=== PATIENT | female | born 1990 | race Caucasian/White ===

== ENCOUNTER 2020-09-24 14:39 | Outpatient (CLI) | payer BC, OTHER, SELFPAY ==
--- NOTE | 2020-09-24 | ECHO_ITS ---
Patient Info Name: Shanel Thompson Age: 30 years : 1990 Gender: Female Ht: 66 in Wt: 210 lbs BSA: 2.14 m2 HR: 72 bpm BP: 131 / 76 mmHg Heart Rhythm: Sinus Rhythm Technical Quality: Good Exam Date: 09/24/2020 3:13 PM Exam Location: [facility] Pulmonary Patient Status: Outpatient Admit Date: 09/24/2020 Staff Ordering Physician: Lso, Bassam HERBERT Associate Data Scientist: Leslee Shaver RDCS Attending Provider: Los, Bassam HERBERT Exam Type: CA echo doppler color flow Study Info Indications - HTN Complete two-dimensional, color flow and Doppler transthoracic echocardiogram is performed. Summary 1. Complete two-dimensional, color flow and Doppler transthoracic echocardiogram is performed. 2. Left ventricular chamber dimension is mildly enlarged. 3. Left ventricular systolic function is normal, estimated at 60-65%. 4. There is mildly increased left ventricular wall thickness. 5. The left ventricular diastolic function is abnormal. 6. There is mild tricuspid valve regurgitation. 7. There is mild pulmonic regurgitation. 8. Suspected patent foramen ovale visualized by color flow imaging. Left Ventricle Left ventricular chamber dimension is mildly enlarged. Left ventricular systolic function is normal, estimated at 60-65%. There is mildly increased left ventricular wall thickness. The left ventricular diastolic function is abnormal. Right Ventricle Right ventricular chamber dimension is normal. Right ventricular systolic function is normal. Left Atria Left atrial chamber dimension is normal. Right Atria Right atrial chamber dimension is normal. Atrial Septum Suspected patent foramen ovale visualized by color flow imaging. Aortic Valve The aortic valve is trileaflet. There is no aortic valve sclerosis. There is no aortic valve stenosis. There is trace aortic valve regurgitation. Pulmonic Valve The pulmonic valve is normal. There is no pulmonic valve stenosis. There is mild pulmonic regurgitation. Mitral Valve The mitral valve has normal leaflets. There is no mitral valve stenosis. There is trace mitral valve regurgitation. Tricuspid Valve The tricuspid valve leaflets are normal. There is no significant tricuspid valve stenosis. There is mild tricuspid valve regurgitation. No pulmonary hypertension, estimated pulmonary arterial systolic pressure is 27 mmHg. Pericardium/Pleural The pericardium appears normal. There is no pericardial effusion. Inferior Vena Cava Normal inferior vena cava with >50% collapse upon inspiration consistent with normal right atrial pressure, 10 mmHg. Aorta The aortic root size at the sinus of Valsalva is normal. The prox ascending aorta size is normal. Left Ventricular Outflow Tract Name Value Normal LVOT 2D LVOT Diameter 2.1 cm LVOT Doppler LVOT Peak Gradient 4 mmHg LVOT Mean Gradient 3 mmHg LVOT VTI 22 cm LVOT VTI/AV VTI Ratio 0.8 LVOT Stroke Volume 79 ml LVOT CO
== END 2020-09-24 14:40 | disposition home or self-care (01) ==
LOC: ANHCARD 14:41
PROVIDERS: PCP Family Medicine; Visit Provider Nurse Practitioner Family
DX: R00.2 Palpitations (principal); I10 Essential (primary) hypertension; I36.1 Nonrheumatic tricuspid (valve) insufficiency; I37.1 Nonrheumatic pulmonary valve insufficiency
CPT/HCPCS: 93306

== ENCOUNTER 2021-03-24 15:59 | Outpatient (CLI) | payer BC, MEDICAID, SELFPAY ==
--- NOTE | ~2021-03-24 | US_ITS ---
EXAMINATION: US venous doppler LE RT DATE: 03/24/2021 16:22 INDICATION: Right lower limb pain TECHNIQUE: Grayscale ultrasound images without and with compression and Doppler ultrasound images of the right lower extremity veins were obtained. COMPARISON: None. FINDINGS: The visualized portions of right common femoral vein, profunda (deep) femoral vein, femoral vein, pop liteal vein, peroneal trunk, posterior tibial veins, peroneal veins, gastrocnemius vein and greater s aphenous vein outflow are patent. IMPRESSION: 1. No deep venous thrombosis in the right lower limb. Reviewed, dictated and finalized at location A.
== END 2021-03-24 16:00 | disposition home or self-care (01) ==
LOC: ANHIMG 16:07
PROVIDERS: PCP Family Medicine; Visit Provider Nurse Practitioner Family
DX: M79.661 Pain in right lower leg (principal)
CPT/HCPCS: 93971

== ENCOUNTER 2023-09-12 01:05 | Observation (INO) | payer MEDICAID, SELFPAY ==
[2023-09-12] VITALS (14 sets, daily range): BP systolic 106–175; BP diastolic 79–128; PULSE 86–206; RESP 14–24; TEMP 36.3–36.8; O2SAT 95–100; BMI 22.4
--- NOTE | ~2023-09-12 | US_ITS ---
EXAMINATION: US venous doppler [facility] DATE: 09/12/2023 12:25 INDICATION: Atrial fibrillation TECHNIQUE: [place] scale images without and with compression and Doppler images of the bilateral lower e xtremity veins were obtained. COMPARISON: 03/24/2021 FINDINGS: The right common femoral vein, profunda femoral vein, femoral vein, popliteal vein, peroneal trunk, p osterior tibial veins, and greater saphenous vein are patent. The left common femoral vein, profunda femoral vein, femoral vein, popliteal vein, peroneal trunk, po sterior tibial veins, and greater saphenous vein are patent. IMPRESSION: 1. Patent bilateral lower extremity veins. No evidence of deep venous thrombosis. Reviewed, dictated and finalized at location L. FOOD PRODUCTS MIXER IMPRESSION: 1. Patent bilateral lower extremity veins. No evidence of deep venous thrombosi s.
--- NOTE | ~2023-09-12 | CT_ITS ---
EXAMINATION: CTA chest PE protocol DATE: 09/12/2023 05:09 INDICATION: Shortness of breath. TECHNIQUE: Computed tomography angiography (CTA) of the chest was performed with 100 mL Omnipaque-350 intravenous contrast timed to evaluate the pulmonary arteries. Coronal maximum intensity projection 3D-reconstructions were created by the technologist. Automated exposure control and iterative reconst ruction technique were employed. The dose-length product was 195.61 mGy-cm. COMPARISON: CT abdomen and pelvis 10/19/2009 FINDINGS: The lungs demonstrate mild atelectasis. No pleural effusion. The heart size is normal. No p ericardial effusion. There is no pulmonary embolus. There are cysts in the liver measuring up to 3.2 cm. There is mild thoracic spondylosis. IMPRESSION: 1. No pulmonary embolus. Reviewed, dictated and finalized at location A. RICT SUPERVISOR IMPRESSION: 1. No pulmonary embolus.
--- NOTE | ~2023-09-12 | XR_ITS ---
EXAMINATION: XR chest 1V portable DATE: 09/12/2023 02:11 INDICATION: Chest pressure. Tachycardia. TECHNIQUE: A single frontal view of the chest was obtained. COMPARISON: Chest 2 views 04/14/2009, chest CT 09/12/2023 FINDINGS: There is no pneumonia, pleural effusion, or pneumothorax. The heart size is normal. IMPRESSION: 1. No acute cardiopulmonary disease. Reviewed, dictated and finalized at location A. TECHNICIAN
--- NOTE | 2023-09-12 01:11 | ECG_ITS ---
Measurements Intervals [place] Rate: P: IN: 0 QRS: 68 QRSD: 93 T: -44 QT: 203 QTc: 372 Interpretive Statements ATRIAL FIBRILLATION WITH RAPID VENTRICULAR RESPONSE WITH ABERRANT CONDUCTION OR VENTRICULAR PREMATURE COMPLEXES MARKED ST DEPRESSION, CONSIDER SUBENDOCARDIAL INJURY [0.2+ mV ST DEPRESSION] NO PREVIOUS ECG AVAILABLE FOR COMPARISON Electronically Signed On 09-12-2023 8:46:38 PRIMARY PRODUCTS INSPECTORS by Eusebia Mac M.D.
[2023-09-12] MEDS: SODIUM CHLORIDE 0.9% IV 1,000 ML 999 ML IV CONT ×2 (01:47→02:47)
[2023-09-12] MEDS: ADENOSINE IV SOLN 6 MG/2 ML VIAL IV PUSH (01:53)
[2023-09-12] MEDS: ADENOSINE IV SOLN 6 MG/2 ML VIAL 12 MG IV PUSH (01:53)
--- NOTE | 2023-09-12 01:54 | ECG_ITS ---
Measurements Intervals [place] Rate: 206 P: [place]: 0 QRS: 59 QRSD: 89 T: -47 QT: 201 QTc: 373 Interpretive Statements ATRIAL FIBRILLATION WITH RAPID VENTRICULAR RESPONSE WITH ABERRANT CONDUCTION OR VENTRICULAR PREMATURE COMPLEXES MARKED ST DEPRESSION, CONSIDER SUBENDOCARDIAL INJURY [0.2+ mV ST DEPRESSION] COMPARED TO ECG 09/12/2023 01:24:13 NO SIGNIFICANT CHANGES Electronically Signed On 09-12-2023 8:46:47 NEWS CONTENT SPECIALIST by Eusebia Mac M.D.
[2023-09-12] MEDS: dilTIAZem 100 MG/100 ML 100 MG/100 ML BAG IV CONT (02:02)
[2023-09-12] MEDS: dilTIAZem HCl INJ 25 MG/5 ML VIAL 20 MG IV PUSH (02:02)
[2023-09-12] MEDS: ASPIRIN 81 MG CHEWABLE TABLET 324 MG PO (02:08)
--- NOTE | 2023-09-12 02:11 | PC.NURSE ---
0140- this RN and EDP at bedside. pt HR 206, BP 136/106, 100%, RR 22. 0145- IV placed, pt on continuous ekg, quick pads on pt, fluid bolus infusing 6mg and 12mg adenosine drawn up and ready for EDP 0150- EDP at bedside. Continuous ekg on 6mg adenosine IVP by CARLITOS Lopez. Pt HR 208 0151- pt HR 198 EDP verbalized 12mg adenosine 0152- pt HR 197 12 mg adenosine IVP by CARLITOS Lopez 0153- Pt HR 212 0154- EDP VORB 20mg IVP cardizem and 5mg/hr drip to start. Pt still on quik combo pads.
[2023-09-12 02:25] LABS: Basophils Absolute Auto 0.1 K/mm3 (0.0-0.1); Basophils Percent Auto 1.3 % (0.2-1.2); Eosinophils Absolute Auto 0.2 K/mm3 (0-0.3); Eosinophils Percent Auto 3.1 % (0-4.4); Hematocrit 34.4 % (37.0-47.0); Hemoglobin 9.6 g/dL (12.0-15.0); Immature Granulocyte Absolute 0.02 K/mm3 (0.00-0.031); Immature Granulocyte Percent A 0.3 % (0-0.5); Lymphocytes Absolute Auto 2.14 K/mm3 (0.9-3.2); Lymphocytes Percent Auto 27.2 % (18.3-44.2); Mean Corpuscular HGB Conc 27.9 g/dl (32-36); Mean Corpuscular Hemoglobin 20.3 pg (26-34); Mean Corpuscular Volume 72.7 fl (80-100); Monocytes Absolute Auto 0.6 K/mm3 (0.1-0.6); Monocytes Percent Auto 7.6 % (2.6-8.5); Neutrophils Absolute Auto 4.8 K/mm3 (1.3-6.7); Neutrophils Percent Auto 60.5 % (45.5-73.1); Platelet Count Result 358 k/mm3 (150-375); Red Blood Count 4.73 M/mm3 (4.2-5.4); Red Cell Distribution Width 17.7 % (11.5-14.5); White Blood Count 7.9 K/mm3 (4.5-10.0)
[2023-09-12 02:34] LABS: Alanine Aminotransferase 20 U/L (6-35); Albumin Level 4.9 g/dL (3.5-5.1); Alkaline Phosphatase 60 U/L (38-126); Anion Gap 10 mmol/L (8-16); Aspartate Amino Transferase 35 U/L (14-36); Bilirubin,Total 0.5 mg/dL (0.2-1.3); Blood Urea Nitrogen 12 mg/dL (7-17); Carbon Dioxide 25 mmol/L (22-30); Chloride 109 mmol/L (98-107); Estimated CRCL calculation 104 ml/min; Estimated Glomerular Filt Rate > 60; Glucose 103 mg/dL (65-110); Lipase 181 U/L (23-300); Potassium 3.3 mmol/L (3.4-5.0); Sodium 144 mmol/L (137-145)
[2023-09-12 02:36] LABS: Prothrombin Time 13.8 Seconds (11.1-14.7)
[2023-09-12 02:37] LABS: Partial Thromboplastin Time 29.7 SECONDS (22.3-36.8)
[2023-09-12 02:46] LABS: Troponin I < 0.012 ng/mL (0.000-0.034)
[2023-09-12] MEDS: dilTIAZem HCl INJ 25 MG/5 ML VIAL IV PUSH (02:47)
[2023-09-12] MEDS: POTASSIUM CHLORIDE 20 MEQ PACKET (FOR LIQUID) 40 MEQ PO (02:53)
[2023-09-12 02:57] LABS: Hypochromasia 2+ (NORMAL); Ovalocytes 1+ (NORMAL); Platelet Estimate Adequate (Adequate); Schistocytes None Seen (NORMAL)
--- NOTE | 2023-09-12 03:10 | PC.NURSE ---
Pt at max dose of diltiazem infusion. EDP Dr. Moran made aware. HR 123, BP 107/90.
[2023-09-12 03:13] LABS: Thyroid Stimulating Hormone 0.526 uIU/mL (0.465-4.680)
[2023-09-12 03:21] LABS: Amphetamine Screen Urine Negative (Negative); Barbiturate Screen Urine Negative (Negative); Benzodiazepines Screen Urine Negative (Negative); Cannabinoid Screen Urine Negative (Negative); Cocaine Screen Urine Negative (Negative); Methadone Screen Urine Negative (Negative); Opiate Screen Urine Negative (Negative); Phencyclidine Screen Urine Negative (Negative)
--- NOTE | 2023-09-12 04:02 | ED.GENADULT ---
HPI - General Adult General Chief complaint: Chest Pain Stated complaint: I cannot get heart rate to stop being high/poundin Time Seen by Provider: 09/12/23 01:36 History of Present Illness HPI narrative: Patient 33-year-old female who presents emergency department with chief complaint of palpitations. Patient reports this evening she started having palpitations and notes that her heart was beating very fast. The patient states she felt a little short of breath with this and also felt some tightness in her chest. Patient denies stimulant use denies heavy caffeine use reports that she has had some episodes in the past of fast heart rate but it usually go away in the matter of minutes but this episode would not stop. Related Data Allergies Allergy/AdvReac Type Severity Reaction Status Date / Time amoxicillin Allergy Mild Hives / Verified 09/12/23 01:58 Red Face Penicillins Allergy Mild Hives / Verified 09/12/23 01:58 Red Face BUTORPHANOL TARTRATE Allergy Mild RASH,ITCHIN Uncoded 08/23/22 08:30 G Review of Systems Review of Systems: A 10 system review of systems was completed on the patient and is negative except for what is stated in the HPI. Nursing and ancillary documentation was reviewed. PMFSH Past Medical History Medical History Abnormal 24 hour ambulatory pH monitoring study Anxiety Surgical History Surgical History H/O dilation and curettage History of placement of ear tubes History of tonsillectomy Family History Family History Mother Hypertension Malignant tumor of cervix Father Hypertension Heart disease Social History Social History Smoking status: Former smoker Alcohol intake: former Substance use: never Living arrangements: with family Occupation/Education: occupation Gender identity (if verbalized by the patient): Female Sexual Orientation (if Verbalized by the Patient): Straight or Heterosexual Exam Narrative: GENERAL: Well-appearing, well-nourished, and in no acute distress. HEAD: Normocephalic, atraumatic. EYES: PERRLA and EOMI. ENT: Nares clear, no rhinorrhea or epistaxis. Mucous membranes moist. NECK: Supple. CHEST: Clear to auscultation. No respiratory distress. HEART: Tachycardic rate and rhythm. No murmur heard. Normal peripheral pulses. ABDOMEN: Soft, nontender, nondistended, normal active bowel sounds. EXTREMITIES: Normal range of motion. No edema. SKIN: Warm, dry, no rash. NEURO: No focal deficits. Alert and oriented x3. PSYCH: Normal mood and affect. Course Vital Signs Vital signs: Vital Signs Temperature 36.3 C L 09/12/23 01:07 Pulse Rate 202 H 09/12/23 01:07 Respiratory Rate 16 09/12/23 01:07 Blood Pressure 175/128 H 09/12/23 01:07 Pulse Oximetry 100 09/12/23 01:07 Oxygen Delivery Room Air 09/12/23 01:07 Temperature 36.3 C L 09/12/23 01:07 Pulse Rate 123 H 09/12/23 02:56 Respiratory Rate 14 09/12/23 02:56 Blood Pressure 108/83 09/12/23 02:56 Pulse Oximetry 95 09/12/23 02:56 Oxygen Delivery Room Air 09/12/23 01:40 Medical Decision Making MDM Narrative Medical decision making narrative: differential diagnosis includes AFib RVR, SVT, dysrhythmia, electrolyte abnormality, hyperthyroidism, EKG showed a narrow complex tachycardia with a rate of 202. The patient was given 6 mg of adenosine did slow the rate down briefly on an additional 12 mg of adenosine was trialed did confirm atrial fibrillation with rapid ventricular response. The patient started on a Cardizem drip and given a Cardizem bolus. Laboratory studies were obtained on the patient which showed normal CBC CMP showed a potassium of 3.3 and magnesium of 2.0 tropon
--- NOTE | 2023-09-12 05:25 | ADMIMU ---
This patient, Shanel Thompson, was admitted to IMU status, and placed in Intensive Care Unit-4. Patient/family oriented to hospital policies and general routines including ID bracelet, bed and alarms, visiting hours, pain management, procedures, bathroom and other care routines, personal items, smoking policy, room service/diet, and visiting hours. Valuables list has been completed. Information on how to activate the Rapid Response Team has been discussed. Patient/Family are encouraged to report perceived risks to care and to ask questions if they do not understand what they are told or what they should do.
[2023-09-12 08:48] LABS: Troponin I < 0.012 ng/mL (0.000-0.034)
--- NOTE | 2023-09-12 09:28 | PM.IMHP ---
H&P: HPI History of Present Illness Date/Time: 09/12/23 09:28 Chief Complaint: Palpitations Narrative: 33yo female with chronic GI symptoms associates with rectal bleeding, Raynauds and anxiety here for palpitations. Patient was at home getting ready for bed when she developed 'racing and pounding' in her chest. Associated with chest pain, SOB, diaphoresis, weakness and lightheadedness. She has had similar symptoms over the past 2 years. She sees Sales Development Executive (Dr Marroquin) for this. She has had a nurse obgyn in the past that was read as normal. She was given metoprolol with benefit but then it seemed not to work as well and the doctor stopped this. No hx of congenitial heart problems. Echo in 2020 report reviewed (normal except diastolic dysfxn and possible PFO). She has these episodes often and usually last up to a minute. Better with rest. Mom with CMP but no early CAD in the family. She drinks a powdered caffeine drink in the morning (70mg caffeine) and diet pepsi 32oz/day (98mg caffeine). No new mediations. No new OTC medications. She takes tyelol and ibuprofen for chronic headaches; occasionally needs Fioricet (takes 1x/month on avg). She has had a recent cough productive of green sputum that is improving. No fever, chills, ear pain, vision changes, nasal congestion, post-nasal drainage, vomiting, calf pain, pedal edema, dyuria or hematuria. She doubts she could be . She does have chronic abdominal pain with constipation alternating with diarrhea with frequent bloody stools. She is followed by GI with plans for colonoscopy and EGD. She also has chronic numbness and tingling in her feet from Raynaud's but no acute changes. . Chart review shows she has had DVTs in the past and has possible hypothyroidism and anti-phospholipid Ab syndrome. Because the fact the palpitations did not resolve as usual, she presented to the ED for evaluation. In the ED, her HR was 202, BP 175/128 and afebrile. She was tolerating this well. EKG showing AFib with RVR (202) with marked ST depression. Chest CTA showing mild atelectasis and live cysts but no PE. She has a microcytioc anemia with Hgb 9.6. WBC and plt count normal. PT/PTT normal. Potassium low at 3.3. TSH normal Troponin negative x2. UDS was negative. She was treated with ASA. Adenosine given twice which confirmed AFib. She wsa started on Diltiazem drip. Potassium was replaced. She was admitted for further care. Review of Systems Review of Systems: All systems reviewed & are unremarkable except as noted in HPI and below PMFSH Past Medical History Medical History (Updated 09/12/23 @ 10:01 by Clyde Ivan MD) Abnormal 24 hour ambulatory pH monitoring study Anxiety Raynaud phenomenon Sees Rheum for possible antiphospholipid syndrome Surgical History Surgical History (Updated 09/12/23 @ 09:54 by Clyde Ivan MD) H/O dilation and curettage History of placement of ear tubes History of tonsillectomy Hx of unilateral salpingectomy for ectopic Family History Family History Mother Malignant tumor of cervix Hypertension High cholesterol Father Heart disease Hypertension High cholesterol Sibling Hypertension Social History Social History (Updated 09/12/23 @ 09:55 by Clyde Ivan MD) Social History: Patient quit tobacco 2 years ago. She occasionally vapes. She denies drug use including marijuana. No alcohol use. She lives at home with her , 5 children and 1 grandchild. She is a full code. She nominates her to be the individual who would make medical decisions for her she is unable. Smoking status: Never smoker Alcohol intake: never Substance use: never Do You Feel Safe in your Home?: No Lack of Transportation: No Lack of Food: Never True Current Housing: I Have Housing Concerned About Future Housing: No Difficulty Paying Gas/Electric Bills: No Difficu
--- NOTE | 2023-09-12 10:18 | PM.CNCAR ---
Assessment and Plan Assessment and plan (1) Atrial fibrillation with rapid ventricular response: Code(s): I48.91 - Unspecified atrial fibrillation Status: Acute Assessment and Plan: New diagnosis of atrial fibrillation. Discussed pathophysiology of atrial fibrillation, management/treatment strategies, including rate control vs rhythm control strategy, etc. Discussed FRANKIE-guided DCCV, which would necessitate uninterrupted anticoagulation for 4 weeks post cardioversion. Would not need long-term anticoagulation as [id number] of 1 for gender. Patient prefers to be anticoagulated for at least 3 weeks prior to cardioversion and pursue outpatient cardioversion so she does not have to undergo FRANKIE. At this time, workup is being done for her anemia. Therefore, will hold off on starting anticoagulation pending anemia workup. In the meantime, will work on rate control. Stop IV Diltiazem and start PO Diltiazem. Start PO Metoprolol. Obtain transthoracic echocardiogram. Will need outpatient sleep study. Outpatient Electrophysiology evaluation. (2) Microcytic anemia: Code(s): D50.9 - Iron deficiency anemia, unspecified Status: Acute Assessment and Plan: Workup as per primary team. Plan Recommendations and plan discussed with Hospitalist, Dr. Ivan. History of Present Illness History of Present Illness Consult date/time: 09/12/23 10:18 Requesting physician: Clyde Ivan MD Consult reason: atrial fibrillation Reason For Visit: AFib with Rapid Ventricular Response Narrative: We are consulted for atrial fibrillation with RVR. This is a 33 year old female with reported history of 2 prior DVTs, possible antiphospholipid syndrome (no prior records in our system) who presented with palpitations. Patient reports that she has felt brief episodes of palpitations in the past, however, last night she had ongoing palpitations that did not resolve, therefore, presented to ER. EKGs show atrial fibrillation with RVR. She has been started on Diltiazem drip. Patient denies any past cardiac issues. This is a new diagnosis of atrial fibrillation for her. Reports her mother has cardiomyopathy. Vapes about 10 times a day for the past year or so. No recreational drug use. TSH level was normal. Review of Systems Review of Systems: All systems reviewed & are unremarkable except as noted in HPI and below (HPI) [facility] Past Medical History Medical History Abnormal 24 hour ambulatory pH monitoring study Anxiety Raynaud phenomenon Sees Rheum for possible antiphospholipid syndrome Surgical History Surgical History H/O dilation and curettage History of placement of ear tubes History of tonsillectomy Hx of unilateral salpingectomy for ectopic Family History Family History Mother Malignant tumor of cervix Hypertension High cholesterol Father Heart disease Hypertension High cholesterol Sibling Hypertension Social History Social History Social History: Patient quit tobacco 2 years ago. She occasionally vapes. She denies drug use including marijuana. No alcohol use. She lives at home with her , 5 children and 1 grandchild. She is a full code. She nominates her to be the individual who would make medical decisions for her she is unable. Smoking status: Never smoker Alcohol intake: never Substance use: never Do You Feel Safe in your Home?: No Lack of Transportation: No Lack of Food: Never True Current Housing: I Have Housing Concerned About Future Housing: No Difficulty Paying Gas/Electric Bills: No Difficulty Paying for Meds: No Currently Unemployed: No Education: Trade/Vocational Certificate Difficulty w/ Childcare or Family Care: No Living arrangements: with
[2023-09-12] MEDS: dilTIAZem HCL CD 120 MG CAP.24HR PO (10:28)
[2023-09-12] MEDS: METOPROLOL TARTRATE 50 MG TAB PO (10:28)
[2023-09-12] MEDS: PANTOPRAZOLE SODIUM IV 40 MG VIAL IV PUSH (10:28)
[2023-09-12 10:58] LABS: SPREG INTERNAL CONTROL Positive; Serum Qual hCG Negative
[2023-09-12 11:03] LABS: Iron 23 ug/dL (37-170)
[2023-09-12 11:08] LABS: Anion Gap 8 mmol/L (8-16); Blood Urea Nitrogen 7 mg/dL (7-17); CRP < 0.5 mg/dL (<1.0); Calcium 8.6 mg/dL (8.4-10.2); Carbon Dioxide 22 mmol/L (22-30); Chloride 110 mmol/L (98-107); Estimated CRCL calculation 123 ml/min; Estimated Glomerular Filt Rate > 60; Glucose 98 mg/dL (65-110); Magnesium 1.9 mg/dL (1.6-2.3); Potassium 3.6 mmol/L (3.4-5.0); Sodium 140 mmol/L (137-145)
[2023-09-12 11:12] LABS: Percent Iron Saturation 5 % (20-50)
[2023-09-12 11:38] LABS: Ferritin 3.88 ng/mL (6.24-137)
[2023-09-12 12:11] LABS: Folic Acid > 20.0 ng/mL (2.76->20)
[2023-09-16 15:05] LABS: ANCA Screen Negative (Negative); Myeloperoxidase Ab <1.0 AI (<1.0); Proteinase-3 Ab <1.0 AI (<1.0); S cerevisiae Ab (IgA) 7.9 U (<=20.0)
[2023-09-18 15:54] LABS: Anti Nuclear Antibody Titer 1:40 (Negative)
--- NOTE | 2023-09-23 06:48 | PM.DS ---
DS: Admitting Diagnosis Discharge Date 09/12/23 Admitting Diagnosis Palpitations DS: Discharge Diagnosis Discharge Diagnosis (1) Atrial fibrillation with rapid ventricular response: Code(s): I48.91 - Unspecified atrial fibrillation Status: Acute (2) Rectal bleeding: Code(s): K62.5 - Hemorrhage of anus and rectum Status: Acute (3) Microcytic anemia: Code(s): D50.9 - Iron deficiency anemia, unspecified Status: Acute (4) Hypokalemia: Code(s): E87.6 - Hypokalemia Status: Acute (5) Raynaud phenomenon: Code(s): I73.00 - Raynaud's syndrome without gangrene Status: Acute DS: Summary Hospital Course Reason for hospitalization: 33yo female with chronic GI symptoms associates with rectal bleeding, Raynauds and anxiety here for palpitations.?Please see H&P for details. Hospital Course: In the ED, her HR was 202, BP 175/128 and afebrile. She was tolerating this well. EKG showing AFib with RVR (202) with marked ST depression. Chest CTA showing mild atelectasis and liver cysts but no PE. She has a microcytic anemia with Hgb 9.6. WBC and plt count normal. PT/PTT normal. Potassium low at 3.3. TSH normal. Troponin negative x2. UDS was negative. She was treated with ASA. Adenosine given twice which confirmed AFib. She was started on a Diltiazem drip. Potassium was replaced. She was admitted and Cardiology consulted. Patient was not initially anticoagulated due to her anemia and hx of rectal bleeding. GI work-up here to see if we can anticoagulate at some point so GI was consulted. Cardiology felt patient may need FRANKIE-guided DCCV, which would necessitate uninterrupted anticoagulation for 4 weeks post cardioversion. Would not need long-term anticoagulation as [id number] of 1 for gender. Patient has a hx of Raynaud's and possibly antiphospholipid Ab syndrome. Hx of DVTs in the past with one being unprovoked. She has with one ectopic . Followed by [employer] [facility]. IBD panel negative. SYLVIA positive but only 1:40 (nuclear, dense fine speckled), so could be normal variant. Protonix added since she does take ibuprofen regularly. She was iron deficient. Normal B12 and folate. Heart rate improved with the IV Diltiazem drip. She was able to be transitioned to oral diltiazem and metoprolol. Patient decided to sign out against medical advise. Risks of signing out were discussed by nursing and patient voiced understanding of those risks. We will send her with oral medications to control rate. Status at Discharge Cognitive/behavioral status at discharge: stable Time Spent with Patient Time attestation: Total time spent providing and/or coordinating discharge services: 40 minutes Time spent: Greater than 30 minutes Exam Narrative: AF 97.9 115/85 107 16 100 Gen - well-nourished, well-developed female in no acute respiratory distress who is nontoxic-appearing lying semi recumbent in bed HEENT - normocephalic. Atraumatic. Pupils equal round and reactive. Extraocular motions intact. Sclera clear and anicteric. Nares patent. Oropharynx was clear. No oral lesions. Moist mucous membranes. Tongue was midline. Palate dangelo symmetrically. No facial asymmetry. Small nodule noted left of midline tip of tongue (recommended she f/u with her doctor) Neck - neck was supple. No dominant adenopathy, thyromegaly or masses. 2+ carotid upstrokes without bruits. Chest - lungs are clear to auscultation bilaterally. No wheezes or crackles. Breast exam was deferred. CV - heart was irregularly irregular with mostly controlled rate. S1-S2. No murmurs gallops or rubs. Abd - abdomen was soft. Nontender. Nondistended. Positive bowel sounds. No organomegaly or masses. Ext - no clubbing, cyanosis or edema. 2+ DP pulses bilaterally. Neuro - patient is alert and oriented x4. Strength is 5/5 in both upper and lower extremities. Cranial nerves 2-12 are intact. Speech is clear. Psych - normal mood
== END 2023-09-12 13:24 | disposition left against medical advice (07) ==
LOC: ANHED 04:05 → ANHICU 05:04
PROVIDERS: Admitting Provider Internal Medicine; Emergency Provider Emergency Medicine; PCP Family Medicine; Visit Provider Internal Medicine
DX: I48.91 Unspecified atrial fibrillation (principal); K62.5 Hemorrhage of anus and rectum; E87.6 Hypokalemia; D50.9 Iron deficiency anemia, unspecified; R51.9 Headache, unspecified; G89.29 Other chronic pain; I73.00 Raynaud's syndrome without gangrene; F17.290 Nicotine dependence, other tobacco product, uncomplicated; Z86.718 Personal history of other venous thrombosis and embolism; Z79.1 Long term (current) use of non-steroidal anti-inflammatories (NSAID); Z79.899 Other long term (current) drug therapy; Z82.49 Family history of ischemic heart disease and other diseases of the circulatory system
CPT/HCPCS: 36415; 71045; 71275; 80048; 80053; 80307; 82607; 82728; 82746; 83540; 83550; 83690; 83735; 84443; 84484; 84703; 85025; 85610; 85730; 86036; 86038; 86039; 86140; 86671; 93005; 93970; 96361; 96365; 96375; 99285; A9270; C9113; G0379; J0153; J7030; Q9967

== ENCOUNTER 2023-10-23 16:57 | Emergency (ER) | payer OTHER, BC, MEDICAID, SELFPAY ==
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
[2023-10-23 18:23] VITALS: BP 129/80; PULSE 61; RESP 18; TEMP 36.8; O2SAT 100
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
[2023-10-23] MEDS: ACETAMINOPHEN 500 MG TABLET 1000 MG PO (19:49)
[2023-10-23 19:52] VITALS: BP 117/80; PULSE 66; RESP 15; TEMP 36.7; O2SAT 99
== END 2023-10-23 21:01 | disposition home or self-care (01) ==
LOC: ANHED 20:51
PROVIDERS: Emergency Provider Physician Assistant; PCP Family Medicine
DX: S16.1XXA Strain of muscle, fascia and tendon at neck level, initial encounter (principal); I48.91 Unspecified atrial fibrillation; I73.00 Raynaud's syndrome without gangrene; F17.290 Nicotine dependence, other tobacco product, uncomplicated; Z90.79 Acquired absence of other genital organ(s); V49.50XA Passenger injured in collision with unspecified motor vehicles in traffic accident, initial encounter
CPT/HCPCS: 70450; 71046; 72125; 99284; A9270

== ENCOUNTER 2024-07-08 20:40 | Emergency (ER) | payer MEDICAID, OTHER, SELFPAY ==
[2024-07-08 20:41] VITALS: BP 136/98; PULSE 78; RESP 14; TEMP 36.6; O2SAT 100
== END 2024-07-08 21:36 | disposition left against medical advice (07) ==
PROVIDERS: PCP Family Medicine
DX: R31.9 Hematuria, unspecified (principal)
CPT/HCPCS: 99199

== ENCOUNTER 2025-07-13 19:14 | Emergency (ER) | payer OTHER, MEDICAID, SELFPAY ==
--- NOTE | 2025-07-13 19:22 | ED.URI ---
HPI - URI/Sore Throat General Chief Complaint: Upper Respiratory Infection Stated Complaint: strep Time Seen by Provider: 07/13/25 19:36 Source: patient and RN notes reviewed Mode of arrival: ambulatory Limitations: no limitations History of Present Illness HPI Narrative: 34-year-old female presents concern for sore throat and headache. She reports tactile fever and fatigue. She reports her family members have strep throat. She started feeling sick about 3 days ago MD elicited complaint: sore throat Related Data Allergies Allergy/AdvReac Type Severity Reaction Status Date / Time amoxicillin Allergy Mild Hives / Verified 07/13/25 19:31 Red Face Penicillins Allergy Mild Hives / Verified 07/13/25 19:31 Red Face BUTORPHANOL TARTRATE Allergy Mild RASH,ITCHIN Uncoded 07/08/24 20:48 G Review of Systems Review of Systems: CONSTITUTIONAL: Denies malaise, chills, sweats, or fever. Reports fatigue EYES: Denies visual changes, redness, or discharge. ENT: Denies rhinorrhea, congestion, sinus pain, otalgia. Reports sore throat. CARDIOVASCULAR: Denies chest pain, palpitations, or edema. RESPIRATORY: Denies cough. Denies dyspnea. GASTROINTESTINAL: Denies abdominal pain, nausea, vomiting, diarrhea SKIN: Denies rash or itching. MUSCULOSKELETAL: Denies myalgia. NEUROLOGIC: Reports headache. All systems reviewed & are unremarkable except as noted in HPI and below PMFSH Past Medical History Medical History Abnormal 24 hour ambulatory pH monitoring study Anxiety Raynaud phenomenon Sees Rheum for possible antiphospholipid syndrome Surgical History Surgical History H/O dilation and curettage History of placement of ear tubes History of tonsillectomy Hx of unilateral salpingectomy for ectopic Family History Family History Mother Malignant tumor of cervix Hypertension High cholesterol Father Heart disease Hypertension High cholesterol Sibling Hypertension Social History Social History Social History: Patient quit tobacco 2 years ago. She occasionally vapes. She denies drug use including marijuana. No alcohol use. She lives at home with her , 5 children and 1 grandchild. She is a full code. She nominates her to be the individual who would make medical decisions for her she is unable. Smoking status: Never smoker Alcohol intake: never Substance use: never Lack of Transportation: No Lack of Food: Never True Current Housing: I Have Housing Concerned About Future Housing: No Difficulty Paying Gas/Electric Bills: No Difficulty Paying for Meds: No Currently Unemployed: No Education: Trade/Vocational Certificate Difficulty w/ Childcare or Family Care: No Living arrangements: with family Occupation/Education: occupation Gender identity (if verbalized by the patient): Female Sexual Orientation (if Verbalized by the Patient): Straight or Heterosexual Spiritual care concerns: No Comments At time of signature, agree with nursing past medical, surgical, social and family history. There is no relevant family history pertinent to the presenting complaint Exam Narrative: GENERAL: Nontoxic-appearing, well-nourished, and in no acute distress. HEAD: Normocephalic EYES: PERRLA, conjunctivae clear ENT: Nares clear. Mucous membranes moist. TM pearly norman with sharp light reflex bilaterally; no tragal tenderness. Oropharynx not erythematous without lesions. Tonsils not enlarged and without exudate, no drooling, no hoarseness, no trismus, uvula midline. NECK: Supple. No lymphadenopathy CHEST: Clear to auscultation, breath sounds equal. No wheezing, rhonchi, rales, or stridor. No respiratory distress, speaks in full sentences. HEART: Regular rate and rhythm. No murmur heard. SKIN: Warm, dry, no rash. NEURO: Alert and oriented x3. PSYCH: Normal mood and affect Course Course Emergency Course: Patient is aware of diagnosis, understands and agrees to treatment plan. Anticipatory guidance given. Patient agrees to follow-up as directed and is aware of reasons to seek care at the emergency department. Portions of this record may have been created with voice recognition software Level of Care: [facility] Visit MDM Differential Diagnosis Differential Diagnosis: I evaluated this patient in the [facility] care. History is obtained from patient who is an independent historian and physical exam was performed.? Available medical records were reviewed. ? Exam findings and relevant testing show no acute concerns or changes; patient is non-toxic appearing and is in no distress. ? Differential diagnosis considered: [place] virus, strep pharyngitis, allergic rhinitis, upper respiratory tract infection, sinusitis, rhinosinusitis, nasopharyngitis. viral pharyngitis, otitis media, otitis externa, pneumonia, bronchitis, viral cough syndrome, viral syndrome, and influenza. Differential diagnosis and treatment plan were discussed with the patient. Patient agrees with discussion and after shared medical decision making agrees with plan of care. All questions were answered to the patient's satisfaction. Patient is appropriate for outpatient treatment and follow-up. Discharge Plan Discharge Clinical Impression: Acute streptococcal pharyngitis Patient Disposition: Home Condition: Stable Instructions: Antibiotic Form, Strep Throat (ED) Additional Instructions: -Take the medication as prescribed. Throw away the toothbrush after 24hours of antibiotic. -Eat and drink things that are easy to swallow, like tea or soup, or popsicles to suck on. -Oral rinses such as: Salt water gargles and/or may use topical anesthetic (eg. Chloraseptic spray) or lozenges to relieve dryness or throat pain). -Take Tylenol and ibuprofen as needed for pain and fever as directed. -Frequent hand washing or hand lead esthetician is one of the best ways to prevent spread of infection. -Follow up with primary care provider in 2-3 days if condition is not improving; or seek ER visit if you have trouble breathing, cannot drink enough fluids, have muffled voice, difficulty opening your mouth, or severe swelling. Patient Language: Georgian Prescriptions: New azithromycin [Zithromax Z-Milton] 250 mg tablet See Rx Instructions .ROUTE .COMPLEX Qty: 6 0RF Rx Instructions: take 500 mg today (day 1), then 250 mg for 4 days (days 2-5) No Action diltiazem HCl 120 mg Capsule,Extended Release 24 Hr 120 mg PO QAM Qty: 30 0RF metoprolol tartrate 50 mg Tablet 50 mg PO Q12HR Qty: 60 0RF Follow-up/Referrals: UNKNOWN,DOCTOR [Primary Care Provider] Time of Disposition: 19:40
[2025-07-13 19:30] VITALS: BP 121/83; PULSE 75; RESP 24; TEMP 37; O2SAT 99
[2025-07-13 19:38] LABS: EDSTREPNEGPOS1 Positive (Negative)
== END 2025-07-13 19:42 | disposition home or self-care (01) ==
PROVIDERS: Emergency Provider Nurse Practitioner
DX: J02.0 Streptococcal pharyngitis (principal); I73.00 Raynaud's syndrome without gangrene
CPT/HCPCS: 87880; 99213; G0463